=== PATIENT | female | born 1985 ===

== ENCOUNTER 2017-03-25 04:43 | Inpatient (IN) | payer OTHER, SELFPAY ==
[2017-03-25] VITALS (12 sets, daily range): BP systolic 90–106; BP diastolic 46–67
[~2017-03-25] VITALS: Ht 157.5 cm; Wt 69.0 kg
[2017-03-25] MEDS ORDERED: PRENTAB9 PO (05:03)
[2017-03-25] MEDS ORDERED: LR 1,000 ML IV SCH ×3 (06:52→12:00)
[2017-03-25] MEDS ORDERED: PENICILLIN G POTASSIUM IV 5 MU in D5W MINI-BAG PLUS 100 ML IV STA (06:52)
[2017-03-25] MEDS ORDERED: LACTATED RINGER'S 1000 ML IV STA (06:52)
--- NOTE | 2017-03-25 07:02 | HPEPDOC ---
Obstetrical History & Physical General Date of Admission Mar 25, 2017 at 06:46 History of Present Illness 30 y/o at 39+0 with painful reg ctx's since yest. More freq for several hours. Handling the pain well but desires an epidural. Pos FM. No LOF/VB. Chief Complaint: Contractions, term Information Provided By: Patient Care Care: Good Care Dating Final EDC: Apr 01, 2017 Final EDC by: LMP, 1st trimester (US) Past Medical History Past Obstetrical History : Past Obstetrical History: Multigravida Type of Delivery: Spontaneous Vaginal Del. 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 Past Medical History Medical History denies Surgical History: Denies/None Family History Significant Family History: No pertinent family hx Social History Marital Status: Family situation: Spouse/partner home Psychosocial History: No pertinent psych hx * Smoker: non-smoker Alcohol: Denies Drugs: denies Abuse Violence Screening Have you been hit/kicked/slapp: No Have you been sexually assault: No Imunizations Tdap status: current Influenza Status: current Allergies Coded Allergies: No Known Drug Allergy (Verified Allergy, Unknown, 03/25/17) Medications Scheduled Multivitamins/ ( 27-0.8 mg) 1 Tab Tab, 1 TAB PO DAILY Physical Examination Physical Examination GENERAL: Alert and oriented times three. ABDOMEN: Gravid and non-tender to touch. FETUS: (VTX) by sterile vaginal examination, 6/100/0/intact BOW. EXTREMITIES: No edema. No clonus. Vital Signs/I&O Vital Signs Date Time Temp Pulse Resp B/P (MAP) Pulse Ox O2 Delivery O2 Flow Rate FiO2 03/25/17 04:54 98.1 93 18 100/59 (73) Laboratory Data Urine Culture: No Growth Pertinent Laboratoy Data Blood Type: AB+ RBC Antibody Screen: Negative HIV: Negative Hepatitis B: Negative Hepatitis C: Unknown Rapid Plasma Reagin: Nonreactive Rubella: Immune Varicella: Immune Chlamydia/Gonorrhea: Negative Group B Streptococcus: Positive Quad Screen Test: Declined Cystic Fibrosis: Negative Glucose Tolerance Test: 94 Anatomy Ultrasound Placenta Location: Anterior Normal Anatomy: No (echogenic IC focus, rpt US 6 wks later showed the smae, but isolated) Placenta Previa: No Vaginal Examination Dilation: 6 cm Effacement: 80+% Station: 0 Cervical Consistency: Soft Cervical Position: Anterior Presentation: Cephalic presentation Assessment Variability: Moderate Accelerations: Positive Decelerations: Late (one single isolated late after arrival, responded to reposition, none since) Tocometer Contractions: Yes Frequency: regular Assessment/Plan Assessment Active labor, proven to 7 lb 2 oz. Echogenic IC focus on both US's, isolated finding, VERY likely not clinically significant. Plan Admit and orient. Sewage Treatment Plant Operator and consent. Diet: clrs Group B Streptococcus (GBS) pos-PCN Labs and intravenous (IV) per unit protocol. Counseled on Pitocin and induction of labor (IOL). Lactated Ringers (LR): Bolus 1000mL, then at 125 mL/hr. Anticipate normal spontaneous delivery () C-S as appropriate. SESSIONS,BRENT Morton MD Mar 25, 2017 07:02
[2017-03-25 07:24] LABS: MEAN CORPUSCULAR HEMOGLOBIN 25.1 pg (27.0-33.0); MEAN CORPUSCULAR HGB CONC 33.9 g/dl (32.0-36.5); MEAN CORPUSCULAR VOLUME 74.1 fl (80.0-96.0); RED CELL DISTRIBUTION WIDTH 14.3 % (11.5-14.5); WHITE BLOOD COUNT 9.7 K/mm3 (4.0-10.0)
[2017-03-25] MEDS ORDERED: FENTANYL 2MCG/ML ROPIVACAINE 0.2% IN 0.9% NACL 200ML IVBAG As Ordered ONE (07:31)
[2017-03-25] MEDS ORDERED: OXYTOCIN 30 UNITS IN 0.9% NaCl 500ML IV BAG (J2590) As Ordered ONE (08:17)
[2017-03-25] MEDS ORDERED: AZITHROMYCIN INJ 500 MG, VIAL MATE ADAPTER 1 EACH in D5W 250 ML IV ONE (10:00)
[2017-03-25] MEDS ORDERED: BICITRA 30ML SOLN UDC As Ordered ONE (10:04)
[2017-03-25] MEDS ORDERED: fentaNYL 100 MCG/2 ML INJECTION (J3010) As Ordered ONE ×2 (10:31→11:42)
[2017-03-25] MEDS ORDERED: PHENYLephrine HCL 500 MCG/5 ML (100MCG/ML) SYRINGE (J2370) As Ordered ONE (10:31)
[2017-03-25] MEDS ORDERED: OXYTOCIN INJ 10 UNITS/ML VIAL (J2590) As Ordered ONE (10:31)
[2017-03-25] MEDS ORDERED: ePHEDrine SULFATE 25 MG/5 ML(5MG/ML) SYRINGE As Ordered ONE ×2 (10:31→19:55)
[2017-03-25] MEDS ORDERED: LIDOCAINE 2% INJ 100 MG/5 ML SDV (FOR ANES.) As Ordered ONE (10:31)
[2017-03-25] MEDS ORDERED: MIDAZOLAM INJ 2 MG/2 ML VIAL (J2250) As Ordered ONE (10:31)
[2017-03-25] MEDS ORDERED: ROCURONIUM BROMIDE 50 MG/5 ML VIAL As Ordered ONE (10:31)
[2017-03-25] MEDS ORDERED: PROPOFOL 200 MG/20 ML VIAL As Ordered ONE (10:31)
[2017-03-25] MEDS ORDERED: SUCCINYLCHOLINE 100 MG/5 ML SYRINGE (J0330) As Ordered ONE (10:31)
[2017-03-25 10:39] LABS: CORD GAS ABE V -2.7; CORD GAS HCO3 V 23.6 MEQ/L; CORD GAS O2 SAT V 81.8 %; CORD GAS PCO2 V 46.5 mmHg; CORD GAS PH V 7.323 UNITS; CORD GAS PO2 V 37.6 mmHg; CORD GAS SBC V 21.8 MEQ/L
[2017-03-25 10:42] LABS: CORD GAS ABE A -0.3; CORD GAS HCO3 A 27.9 MEQ/L; CORD GAS O2 SAT A 38.4 %; CORD GAS PCO2 A 60.8 mmHg; CORD GAS PH A 7.279 UNITS; CORD GAS PO2 A 18.3 mmHg; CORD GAS SBC A 22.8 MEQ/L; CORD GAS TCO2 A 29.7 MEQ/L
[2017-03-25] MEDS ORDERED: KETOROLAC 60 MG/2 ML VIAL (J1885) As Ordered ONE (10:42)
[2017-03-25] MEDS ORDERED: ONDANSETRON 4MG/2ML VIAL (J2405) As Ordered ONE ×2 (10:43→12:11)
[2017-03-25] MEDS ORDERED: PENICILLIN G POTASSIUM IV 2.5 MU in D5W 100 ML IV SCH (11:00)
[2017-03-25] MEDS ORDERED: GLYCOPYRROLATE INJ 0.2 MG/ML 2 ML VIAL As Ordered ONE (11:08)
[2017-03-25] MEDS ORDERED: NEOSTIGMINE 10 MG/10 ML VIAL (J2710) As Ordered ONE (11:08)
[2017-03-25] MEDS ORDERED: RHOGAM 300 MCG (1500 IU) INJ (J2790) IM SCH (11:15)
[2017-03-25] MEDS ORDERED: PROMETHAZINE 25 MG TAB PO PRN (11:15)
[2017-03-25] MEDS ORDERED: ONDANSETRON 4MG/2ML VIAL (J2405) IV PRN (11:15)
[2017-03-25] MEDS ORDERED: PERCOCET 5MG/325MG TAB PO PRN (11:15)
[2017-03-25] MEDS ORDERED: MEASLES,MUMPS,RUBELLA VACCINE INJ (MMR-II) (90707) SC SCH (11:15)
[2017-03-25] MEDS ORDERED: METHYLERGONOVINE MALEATE 0.2 MG TAB PO PRN (11:15)
[2017-03-25] MEDS ORDERED: PERCOCET 5MG/325MG TAB As Ordered ONE ×2 (11:42→12:16)
[2017-03-25] MEDS ORDERED: MEPERIDINE INJ 25 MG/ML VIAL (J2175) As Ordered ONE (11:42)
[2017-03-25] MEDS: MEPERIDINE INJ 25 MG/ML VIAL (J2175) IV PRN ×2 (11:45→11:55)
[2017-03-25] MEDS: PERCOCET 5MG/325MG TAB PO PRN ×3 (11:50→21:24)
[2017-03-25] MEDS: ePHEDrine SULFATE 25 MG/5 ML(5MG/ML) SYRINGE IV SCH ×3 (12:00→12:20)
[2017-03-25] MEDS ORDERED: fentaNYL 100 MCG/2 ML INJECTION (J3010) IV PRN (12:00)
[2017-03-25] MEDS ORDERED: diphenhydrAMINE INJ 50MG/ML VIAL (J1200) IV PRN (12:00)
--- NOTE | 2017-03-25 12:16 | RO ---
DATE OF PROCEDURE: 03/25/2017 PREPROCEDURE DIAGNOSIS: 1) Term 2) Maternal indication - episodes of vasal vagal. 3) GBS+;received one dose of ABx. POSTPROCEDURE DIAGNOSIS: NIXON PROCEDURE: PLTCS SURGEON: Junior Preciado MD HAND FLATWORK FINISHER: Kayley Barcenas MD ANESTHESIA: MD César; General Patient is a 31-year-old 2, para 1 at 39 and 0 admitted in active labor. Group B Streptococcus (GBS) positive, received one dose of penicillin. Progressed to complete/complete +2, and attempted pushing. Noted several episodes of apparent vasovagal responses with stable vitals. Required chest rub and ammonia tablets to revive, was slightly disoriented. However, was able to answer questions appropriately; alert and oriented times three. Patient noted to be C/C/+2. With above clinical presentation, long discussion with patient and spouse in regards to risks/benefits/alternatives/indications to continuing to attempt vaginally or even operative vaginal delivery. Patient also did not have any anesthesia, i.e., epidural. Decision made for primary low transverse section with maternal indication as above. DESCRIPTION OF PROCEDURE: The risks, benefits, indications, alternatives of the procedure reviewed with the patient. Informed consent was obtained. The patient was taken to the operating room where general anesthesia was performed. She was then prepped and draped in a normal sterile fashion dorsal to supine position with a leftward tilt after a time out was performed. Immediately after general anesthesia was performed, a Pfannenstiel skin incision was made with a scalpel and carried through to the underlying layer of fascia and through the fascia. Fascia noted to be incised in the midline and was extended laterally with digital assistance. The rectus muscle was then in the midline. Peritoneum was identified and interdigitally the peritoneum was then extended horizontally and superiorly with good visualization. A bladder blade was then introduced into the abdomen, safely above the bladder edge. The lower uterine segment was incised in a transverse fashion with scalpel. The amniotic sac was artificially ruptures and found to be of clear fluid. The incision was then extended manually in a superolateral fashion without complications. The bladder blade was removed. The was previously known to be in a cephalic presentation. The baby was noted to be deeply engaged in the pelvis to approximately +2 station. The was delivered without difficulty; the cord was double clamped and cut. Infant gases were obtained. The was handed off to the waiting intensive-care unit (NICU) team, which was present int he OR. Cord blood gas was also obtained. The placenta was then removed with gentle traction on the umbilical cord. The uterus was exteriorized and cleared of all clots and debris with the zoning assistant of Manisha and Carol as well as a bladder blade. The entire hysterotomy site was visualized and noted to be extending down towards the right lower uterine segment. Did not appear to be extend into the cervix. Bleeding was noted also at the uterine artery site. Two [place] stitches in a superior and inferior fashion were performed in routine with #0 Monocryl without complications. Visualization was again noted and an #0 Monocryl was used in a running locked fashion to close the extension. The remainder of the hysterotomy was closed in a routine fashion with #0 Monocryl. Using the #0 Monocryl from the extension, an imbrication was then performed across the remainder of the hysterotomy without complications. The bladder noted to be inferior to this. Two figure-of-8 sutures were performed at the midline of the hysterotomy incision for hemostasis. At the conclusion of this, hemostasis was appropriately noted. The posterior cul-de-sac and the abdomen were irrigated with warm saline and reintroduced into the abdomen. Again, the hysterotomy site was evaluated for approximately 1-2 minutes with no further bleeding. 3 grams of Marielos were placed in a routine fashion without complications along the hysterotomy site. The fascia was then reapproximated with#0 Vicryl with a running fashion and the subcutaneous layer was closed with four #3-0 Vicryl intermittent without complications. The skin was closed with #4-0 Monocryl in a subcuticular fashion , appropriate dressed with a pressure dressing and Steri-Strips. At the completion of the case, bimanual exam performed good uterine tone and minimal vaginal bleeding. The patient tolerated the procedure well. Sponge, lap and needle counts were correct times three. The patient was taken to the second floor main recovery room due to general anesthesia. Ancef and azithromycin were provided in a routine fashion without complication. MARTI
[2017-03-25] MEDS: DOCUSATE SODIUM 100 MG CAP PO SCH ×2 (13:42→21:24)
[2017-03-25] MEDS: PRENATAL VITAMIN TAB PO SCH (13:42)
[2017-03-25] MEDS: KETOROLAC 30 MG/ML VIAL (J1885) IV SCH ×2 (17:00→23:11)
[2017-03-25 20:22] LABS: MEAN CORPUSCULAR HEMOGLOBIN 24.9 pg (27.0-33.0); MEAN CORPUSCULAR HGB CONC 33.2 g/dl (32.0-36.5); MEAN CORPUSCULAR VOLUME 74.8 fl (80.0-96.0); RED CELL DISTRIBUTION WIDTH 14.5 % (11.5-14.5); WHITE BLOOD COUNT 6.6 K/mm3 (4.0-10.0)
[2017-03-26 02:25] VITALS: BP 89/52
[2017-03-26] MEDS: KETOROLAC 30 MG/ML VIAL (J1885) IV SCH ×2 (05:11→11:32)
[2017-03-26 06:34] VITALS: BP 90/49
[2017-03-26 07:33] LABS: MEAN CORPUSCULAR HEMOGLOBIN 25.3 pg (27.0-33.0); MEAN CORPUSCULAR HGB CONC 33.3 g/dl (32.0-36.5); MEAN CORPUSCULAR VOLUME 75.8 fl (80.0-96.0); RED CELL DISTRIBUTION WIDTH 14.7 % (11.5-14.5); WHITE BLOOD COUNT 9.8 K/mm3 (4.0-10.0)
[2017-03-26] MEDS: PRENATAL VITAMIN TAB PO SCH (07:35)
[2017-03-26] MEDS: DOCUSATE SODIUM 100 MG CAP PO SCH ×2 (07:35→21:31)
[2017-03-26 10:08] VITALS: BP 93/50
[2017-03-26] MEDS: PERCOCET 5MG/325MG TAB PO PRN ×3 (12:52→21:32)
[2017-03-26 14:00] VITALS: BP 91/52
[2017-03-26 17:57] VITALS: BP 93/60
[2017-03-26 22:00] VITALS: BP 95/53
[2017-03-27] MEDS: PERCOCET 5MG/325MG TAB PO PRN (04:06)
[2017-03-27 06:00] VITALS: BP 99/56
[2017-03-27] MEDS ORDERED: IBUPROFEN 800 MG TAB PO SCH (06:00)
[2017-03-27] MEDS: DOCUSATE SODIUM 100 MG CAP PO SCH (08:17)
[2017-03-27] MEDS: PRENATAL VITAMIN TAB PO SCH (08:17)
[2017-03-27] MEDS ORDERED: OXYC1TAB23 PO ×2 (13:35→13:36)
[2017-03-27] MEDS ORDERED: COLA100C3 PO (13:35)
--- NOTE | 2017-03-28 09:09 | DSES ---
DATE OF ADMISSION: 03/25/2017 DATE OF DISCHARGE: 03/27/2017 ADMISSION DIAGNOSES: 1. Term . 2. Active labor. DISCHARGE DIAGNOSES: 1. Term . 2. Active labor. 3. Maternal indication for primary low transverse section. PROCEDURE: Primary low transverse section. COMPLICATIONS: Slight extension of hysterotomy toward the right lower edge of the uterus from hysterotomy. [place] stitches x2. ESTIMATED BLOOD LOSS AT SURGERY: 700 mL HOSPITAL COURSE: 31-year-old, 2, para 2 now, status post primary low transverse section for maternal indications. Uncomplicated postoperative course. Tolerated PO and pain tolerated by oral pain medication. No nausea, vomiting. Breast feeding without issues. Minimal lochia. Able to perform basic activities of daily living without issues. Met all criteria for discharge. Surgical site looks well. Activity: as per routine precautions for primary low transverse section. Diet: as tolerated. Medications: previously provided to the patient were reviewed prior to discharge. Followup: in 2 weeks or sooner as necessary for skin incision. Followup in 6 weeks for routine care. Reviewed all concerns, answered all questions. Spent greater than 20 minutes discussing with patient, spouse in regard to all of the above. MARTI
== END 2017-03-27 16:10 | disposition home or self-care (01) | DRG 766 ==
LOC: M LDO 04:43 → M LDI 06:46 → M OBS 13:31
PROVIDERS: ADMIT Obstetrics & Gynecology; ATTEND Obstetrics & Gynecology
PROC: 10907ZC Drainage of Amniotic Fluid, Therapeutic from Products of Conception, Via Natural or Artificial Opening (ICD-10-PCS; 2017-03-25)
PROC: 10D00Z1 Extraction of Products of Conception, Low, Open Approach (ICD-10-PCS; principal; 2017-03-25 11:02)
DX: O99.824 Streptococcus B carrier state complicating childbirth (principal); Z79.899 Other long term (current) drug therapy; O75.89 Other specified complications of labor and delivery; Z37.0 Single live birth; Z3A.39 39 weeks gestation of pregnancy; R55 Syncope and collapse